=== PATIENT | female | born 1985 | race Caucasian/White ===

== ENCOUNTER 2024-01-01 01:26 | Emergency (ER) | payer OTHER, SELFPAY ==
[2024-01-01 01:29] VITALS: BP 128/86; PULSE 91; RESP 16; TEMP 36.6; O2SAT 93; BMI 33.7
[2024-01-01 02:19] LABS: Absolute Lymphocyte Count 1.96 X10^3/uL (0.83-4.51); Absolute Neutrophil Count 6.9 X10^3/uL (2.0-7.7); Basophil# 0.04 X10^3/uL; Basophil% 0.4 % (0-1); Eosinophil# 0.03 X10^3/uL; Eosinophils% 0.3 % (0-5); Hematocrit 37.7 % (37-47); Lymphocyte # 1.96 X10^3/ul (0.83-4.51); Lymphocyte % 20.9 % (19-41); Mean Corp Hgb Conc 31.8 g/dL (32-36); Mean Corpuscular Hgb 27.1 pg (27.0-32.0); Mean Corpuscular Volume 85.3 fL (81-99); Mean Platelet Vol. 9.3 fl (6.2-12.0); Monocyte# 0.34 X10^3/uL; Monocyte% 3.6 % (0-10); NRBC Flagged by Analyzer 0 % (0-5); Neutrophil # 6.92 X10^3/uL (2.7-7.7); Neutrophil % 74.1 % (47-70); Platelet Count 254 K/mm3 (150-450); RBC Distribution Width CV 14.3 % (11.6-14.6); RBC Distribution Width SD 44.6 fl (35.1-43.9); Red Blood Count 4.42 M/mm3 (4.2-5.4); White Blood Count 9.4 K/mm3 (4.4-11.0)
[2024-01-01 02:32] LABS: ALB/GLOB Ratio 0.8 RATIO (0.9-2.4); AST(SGOT) 15 U/L (15-37); Alanine Aminotransfer ALT/SGPT 11 U/L (13-56); Albumin, Serum 3.3 g/dL (3.2-5.0); Alkaline Phosphatase 56 U/L (45-117); Anion Gap 7 (5-15); BUN 10 mg/dL (7-18); BUN/Creat Ratio 17.3 RATIO (10-20); Calcium,Total 8.6 mg/dL (8.5-10.1); Chloride 110 mmol/L (98-107); Creatinine, Serum 0.58 mg/dL (0.55-1.02); EST Glomerular Filtration Rate 123 mL/min (>60); Est Glom Filt Rate - Afr Amer 148 mL/min (>60); Estimated Creatinine Clearance 130.69 ml/min; Globulin 3.9 g/dL (2.2-4.2); Glucose 136 mg/dL (74-106); Potassium 3.3 mmol/L (3.5-5.1); Protein, Total 7.2 g/dL (6.4-8.2); Sodium Level 139 mmol/L (136-145)
[2024-01-01 02:40] LABS: Bacteria 0 SEEN /hpf (None Seen); Mucous, Urine 0 SEEN /hpf (<or=2+); White Blood Cells 0 SEEN /hpf (0-5)
[2024-01-01 02:41] LABS: Glucose, Dipstick Normal (Normal); Ketone-Dipstick 5 mg/dl (Negative); Leukocyte Esterase-Dipstick 25 /ul (Negative); Nitrite-Dipstick Negative (Negative); Occult Blood-Urine 250 /ul (Negative); Protein-Dipstick 30 mg/dl (Negative); Urine Bilirubin Dipstick Negative (Negative); Urine Clarity Sl. Cloudy (Clear); Urine Urobilinogen Normal (Normal)
[2024-01-01 02:53] LABS: Color, Urine SEE COMMENT BELOW (Yellow)
[2024-01-01 02:54] LABS: Red Blood Cells-Urine 25-50 SEEN /hpf (0-5); Squamous Epithelial Cells - UA 5-10 SEEN /hpf (5-10)
[2024-01-01 03:06] LABS: hCG Titer Quant., Serum 1212 mIU/mL (1-3)
--- NOTE | 2024-01-01 03:40 | US_ITS ---
EXAM: US FIRST TRIMESTER , TRANSABDOMINAL CLINICAL INDICATION: pain and bleeding TECHNIQUE: Real-time transabdominal obstetrical ultrasound of the maternal pelvis and a first trimester with image documentation. COMPARISON: No relevant prior studies available. FINDINGS: GESTATION: No intrauterine identified. UTERUS/CERVIX: Endometrium: 1.9 cm. Small fibroid in the posterior myometrium of the uterus measuring 1.3 cm. OVARIES: Right ovary: 2.7 x 2.7 x 2.0 cm. Left ovary: 2.6 x 2.1 x 1.9 cm. No mass. FREE FLUID: No free fluid. US/Init OB < 14Wks US IMPRESSION: No evidence of intrauterine or ectopic . Differential includes normal early (too soon to visualize), complete/near complete , or nonvisualized ectopic . Recommend trending of the quantitative beta hCG and an interval repeat ultrasound as clinically indicated. Electronically Signed: Juanpablo Baldwin MD at 7:33 EDT ,
[2024-01-01] MEDS: 0.9% Normal Saline (1000mL) 1,000 ML 999 ML IV (03:48)
[2024-01-01 03:49] VITALS: BP 109/71; PULSE 82; RESP 18; O2SAT 97
[2024-01-01 04:41] VITALS: BP 141/82; PULSE 80; RESP 18; O2SAT 96
--- NOTE | 2024-01-01 06:51 | ED.VIS.FEGU ---
HPI HPI - Female History of Present Illness Chief Complaint: Vag Bld, Preg Informant: patient, spouse/S.O. and friend Narrative Narrative: Patient is a 38-year-old female who is a G4, P3 approximately 12 weeks . She reports no other significant past medical history. She states that she believes she is 12 weeks because her last menstrual cycle ended around October 07. She states that she has been doing well but that she returned [facility] today around 2:30 in the afternoon and developed some cramping lower abdominal discomfort. Following this she started passing dark red blood. She denies any passage of tissue. She does state there has been occasional clot formation. She denies any history of bleeding disorder or blood thinner use. She states that her previous 3 pregnancies were carried to full-term without any event. She states that the bleeding was not stopping so she contacted her cooler servicer and with persistent bleeding and abdominal cramping cooler servicer had the patient present to the hospital for evaluation. PFSH PFSH Medical History no medical history no medical history Allergy/AdvReac Type Severity Reaction Status Date / Time No Known Allergies Allergy Verified 01/01/24 01:34 Social History Smoking Status: Never smoker ROS ROS ED Constitutional Constitutional ED: Denies chills or fever(s) Eyes Eyes: Denies change in vision ENT ENT ED: Denies sore throat Cardiovascular Cardiovascular: Denies chest pain, palpitations or racing heartbeat Respiratory/Chest Respiratory/Chest: Denies cough or dyspnea Gastrointestinal Gastrointestinal: Reports abdominal pain; Denies diarrhea, nausea or vomiting Genitourinary Genitourinary ED: Reports other Details: Positive vaginal bleeding ; Denies dysuria Musculoskeletal Musculoskeletal: Denies myalgias Integumentary Denies rash Neurologic Neurologic: Denies headache(s) Hematologic/Lymphatic Hematologic/Lymphatic: Denies easy bleeding or easy bruising EXAM Physical Exam Const Vital Signs: 01/01/24 01:29 01/01/24 03:49 01/01/24 04:41 Temperature 97.8 F Temperature Source Temporal Pulse Rate 91 82 80 Respiratory Rate 16 18 18 Blood Pressure 128/86 H 109/71 141/82 H Blood Pressure Mean 100 83 101 Pulse Ox 93 97 96 Oxygen Delivery Method Room Air Room Air Room Air 01/01/24 07:30 Temperature 98.2 F Temperature Source Temporal Pulse Rate 79 Respiratory Rate 16 Blood Pressure 116/68 Blood Pressure Mean 84 Pulse Ox 98 Oxygen Delivery Method Room Air Positive well nourished, well developed and obese General Appearance ED: well developed; Negative for pallor Nutritional Appearance: obese HEENT HEENT Narrative: Normocephalic atraumatic Eyes PERRL and EOMs intact bilaterally General Eye ED: Negative for pale conjunctiva or scleral icterus Neck supple Resp normal respiratory effort and clear to auscultation bilaterally Cardio regular rate and regular rhythm Rate: other Other Details: Radial and carotid pulses are equal and symmetric GI soft to palpation, non-distended and no masses GI Narrative: Abdomen is obese soft and nondistended with normal active bowel sounds. There is faint pain with palpation along the lower abdomen diffusely without voluntary guarding or rigidity. No pulsatile mass or fluid wave The abdomen is not gravid by exam. Auscultation: normoactive bowel sounds Palpation: soft Narrative: Pelvic exam shows dried blood along the external genitalia without active bleeding. Speculum exam reveals a scant amount of dark red blood within the vaginal vault. As the tissue was manipulated there is spontaneous expulsion of approximately half a shot glass full of dark red blood. Cervix appears to be slightly dilated approximately 1 cm. No obvious signs of trauma or infection Back/Spine no CVA tenderness Extremity normal to inspection and full ROM Neuro oriented x3, CN's II-XII intact bilaterally and no sensory deficits noted Sensorium / Orientation: alert Motor Exam: strength 5/5 throughout Psych Psych Narrative: Patient has a flat affect Skin no rashes or lesions noted Skin Narrative: Capillary refill remains less than 3 seconds General Skin Exam: Negative for jaundice or pallor MDM MDM MDM Narrative Medical decision making narrative: Patient arrived to the ER with stable vitals and a soft nonsurgical abdomen. With her report of being approximately 12 weeks with lower abdominal pain and spontaneous bleeding there is concern for a spontaneous versus threatened miscarriage versus ectopic . There is also concern for acute blood loss anemia requiring transfusion. Basic labs were obtained which showed a stable H&H and normal platelet count. The patient's blood type is O positive and therefore she does not require RhoGAM at this time. A bedside ultrasound was performed and there was no obvious fetus within the urine cavity. As the patient states that she is 12 weeks finding a fetus should be more prevalent. The low hCG value of 1200 indicates that patient is most likely off on her dates or that she has been bleeding longer than reported and undergoing a potential miscarriage. The case was discussed with SAIL REPAIRER on-call Dr. Aguilar. She recommends that as there is nothing obvious found on bedside ultrasound and her quantitative value is so low that she should require a formal ultrasound. Therefore will not be performed at this morning and once obtained SAIL REPAIRER be contacted once again to discuss treatment options. Patient has remained hemodynamically stable while she has been in the ER. The official ultrasound shows no signs of intrauterine or ectopic . The patient's bleeding has been minimal as well and she is remained hemodynamically stable. The case was once again discussed with SAIL REPAIRER and they feel that seeing the patient in 2 days for repeat physical exam and blood work is the most appropriate option. Therefore if the patient is hemodynamically stable without a need for blood transfusion no signs of ectopic on ultrasound and mild/stable bleeding at this time she can follow-up on an outpatient basis History & Record Review Discussion w/independent historian: Patient, Friend and Significant other Lab Data Attestation: I reviewed the patient's lab results. Labs: Laboratory Results - last 24 hr 01/01/24 01/01/24 01:46 02:17 WBC 9.4 RBC 4.42 Hgb 12.0 Hct 37.7 MCV 85.3 MCH 27.1 MCHC 31.8 L RDW Std Deviation 44.6 H RDW Coeff of Jg 14.3 Plt Count 254 MPV 9.3 Immature Gran % (Auto) 0.700 Neut % (Auto) 74.1 H Lymph % (Auto) 20.9 [place] % (Auto) 3.6 Eos % (Auto) 0.3 Baso % (Auto) 0.4 Absolute Neuts (auto) 6.9 Absolute Lymphs (auto) 1.96 Nucleated RBC % 0 Sodium 139 Potassium 3.3 L Chloride 110 H Carbon Dioxide 22.0 Anion Gap 7 BUN 10 Creatinine 0.58 Estim Creat Clear Calc 130.69 Est GFR (MDRD) Af Amer 148 Est GFR (MDRD) Non-Af 123 BUN/Creatinine Ratio 17.3 Glucose 136 H Calcium 8.6 Total Bilirubin 0.40 AST 15 ALT 11 L Alkaline Phosphatase 56 Total Protein 7.2 Albumin 3.3 Globulin 3.9 Albumin/Globulin Ratio 0.8 L HCG, Quant 1212 H Serum , Qual Cancelled Urine Color SEE COMMENT BELOW Urine Clarity Sl. Cloudy Urine pH 6.0 Ur Specific [place] 1.010 Urine Protein 30 H Urine Glucose (UA) Normal Urine Ketones 5 H Urine Occult Blood 250 H Urine Nitrite Negative Urine Bilirubin Negative Urine Urobilinogen Normal Ur Leukocyte Esterase 25 H Urine RBC 25-50 SEEN Urine WBC 0 SEEN Ur Squamous Epith Cells 5-10 SEEN Urine Bacteria 0 SEEN Urine Mucus 0 SEEN Blood Type O POSITIVE Radiography Diagnostic Testing: Clinical Impression(s) from Imaging Studies Obstetrics Ultrasound 01/01/24 03:40 IMPRESSION: No evidence of intrauterine or ectopic . Differential includes normal early (too soon to visualize), complete/near complete , or nonvisualized ectopic . Recommend trending of the quantitative beta hCG and an interval repeat ultrasound as clinically indicated. Electronically Signed: Juanpablo Baldwin MD at 7:33 EDT , Discharge Plan Triage Chief Complaint: Vag Bld, Preg ED Provider: Owen Barnes Dx/Rx/DC Orders Clinical Impression: Spontaneous miscarriage Instructions: ED Miscarriage Spontaneous Primary Care Provider: Care Physician,No Primary Referrals: Ema Bruce DO [Med Staff - Active Staff] - Care Physician,No Primary [Primary Care Provider] - Activity Restrictions/Additional Instructions: You have an appointment scheduled for this January 02 with the SAIL REPAIRER doctor Melissa Gaytan. Please arrive at their office between 1130 and noon on Monday to have your blood work drawn prior to your appointment. If you have any further concerns or worsening of symptoms please return to the ER for repeat evaluation Disposition Disposition: Home, Self Care
[2024-01-01 07:30] VITALS: BP 116/68; PULSE 79; RESP 16; TEMP 36.8; O2SAT 98
[2024-01-01 08:18] VITALS: BP 120/78; PULSE 88; RESP 16; TEMP 36.6; O2SAT 99
== END 2024-01-01 08:19 | disposition home or self-care (01) ==
PROVIDERS: Emergency Provider Emergency Medicine; Visit Provider Emergency Medicine
DX: O03.9 Complete or unspecified spontaneous abortion without complication (principal)
CPT/HCPCS: 76801; 80053; 81001; 84702; 85025; 86900; 86901; 96360; 99283

== ENCOUNTER → 2024-01-03 | Outpatient (CLI) | payer OTHER, SELFPAY ==
[2024-01-03 13:27] LABS: hCG Titer Quant., Serum 153 mIU/mL (1-3)
[2024-01-03 21:07] LABS: Xtra Tube EP Lab EXTRA TUBE
== END | disposition home or self-care (01) ==
PROVIDERS: Referring Provider Obstetrics & Gynecology; Visit Provider Obstetrics & Gynecology
DX: O03.9 Complete or unspecified spontaneous abortion without complication (principal)
CPT/HCPCS: 36415; 84702